=== PATIENT | female | born 1995 ===

== ENCOUNTER 2024-07-16 08:19 | Inpatient (IN) ==
[2024-07-16] MEDS ORDERED: OXYTOCIN 30 UNITS/NSS 30 UNITS/500 ML BAG IV PRN (08:33)
[2024-07-16] MEDS ORDERED: LIDOCAINE 1% LOCAL 20 ML VIAL INFIL PRN (08:33)
[2024-07-16 09:30] LABS: Hematocrit (blood only) 35.8 % (37.0-47.0); Hemoglobin 11.8 g/dl (12.0-16.0); Mean Platelet Volume 10.4 fL (9.4-12.4); Platelet Count 173 K/uL (130-400); RDW Coefficient of Variation 13.7 % (11.5-14.5); RDW Standard Deviation 42.1 fL (36.4-46.3); Red Blood Count 4.21 M/uL (4.20-5.40)
[2024-07-16] MEDS: LACTATED RINGER'S 1,000 ML IV PRN (09:45)
[2024-07-16] MEDS: OXYTOCIN 30 UNITS/NSS 30 UNITS/500 ML BAG IV PRN (09:45)
--- NOTE | 2024-07-16 16:29 | Anesthesiology Consultation ---
Date of Service July 16, 2024 Assessment & Plan (1) Encounter for pre-operative examination: Chart Review Chart Review: Acceptable Risk for Labor Epidural History Height/Weight Height: 5 ft 6 in Weight: 74.843 kg Allergies Allergy/AdvReac Type Severity Reaction Status Date / Time No Known Allergies Allergy Verified 07/15/24 20:08 Medications Home Medications Medication Instructions Recorded Confirmed Last Taken [id number] 1 tab PO DAILY 04/09/24 07/16/24 07/15/24 22:00 [ Plus] Active Medications Generic Name Dose Route Start Last Admin Trade Name Freq PRN Reason Stop Dose Admin Oxytocin 30 units in 500 mls @ 12 mls/hr 07/16/24 08:33 07/16/24 14:30 Pitocin 30 Units/Nss IV 07/18/24 08:32 0.72 units/hr .Q24H PRN 12 mls/hr Labor Induction/Augmentation Titration Protocol 0.72 UNITS/HR Lactated Ringer's 1,000 mls @ 125 mls/hr 07/16/24 08:33 07/16/24 09:45 Lr IV 07/18/24 08:32 125 mls/hr .Q8H PRN Administration L&D Protocol Protocol Past Medical History Medical History Caldera's palsy Varicella vaccination Past Family History Family History Family/Other Breast cancer Cousin with breast cancer Grandfather Diabetes Grandmother Hypertension Aunt Liver cancer Denies family history of Ovarian cancer Colorectal cancer Past Surgical History Surgical History No pertinent past surgical history Social History Smoking Status: Never smoker Do You Dip or Chew Tobacco: No Hx Alcohol Use: No Hx Substance Use: No Physical Exam Vital Signs Last Vital Signs Temp 36.7 C 07/16/24 15:30 Pulse 75 07/16/24 15:27 Resp 18 07/16/24 15:30 BP 117/71 07/16/24 15:27 Testing Laboratory Results 07/16/24 09:08
--- NOTE | 2024-07-16 16:36 | Labor Progress Brief Note ---
Date of Service July 16, 2024 Subjective Beginning to feel more discomfort. Did not want epidural yet. No ROM, VB. Continues to decline AROM. Good FM. Assessment & Plan (1) Encounter for induction of labor: Plan Discussed no change and need to be making additional interventions to get labor to begin. Recommended AROM at this time. Patient wants to get epidural placed and then will agree to AROM. Admission and Anticipated Discharge Date Admission Date: July 16, 2024 Physical Exam Genitourinary: Same cervix as upon admission this morning. No ROM FHT Cat 1 Parral Q3-4 Pit @ 12 Results & Data Vital Signs (Past 12 Hours) Vital Signs Temp Pulse Resp BP 07/16/24 15:30 98.1 F 18 07/16/24 15:30 18 07/16/24 15:30 98.1 F 18 07/16/24 15:27 75 07/16/24 15:27 117/71 07/16/24 14:35 20 07/16/24 14:35 98.4 F 20 07/16/24 14:31 73 07/16/24 14:31 110/58 L 07/16/24 13:37 73 07/16/24 13:37 110/56 L 07/16/24 12:29 73 07/16/24 12:29 97/55 L 07/16/24 11:34 88 07/16/24 11:34 103/60 07/16/24 11:30 18 07/16/24 11:30 98.4 F 18 07/16/24 10:30 71 07/16/24 10:30 89/52 L 07/16/24 09:47 89 07/16/24 09:47 102/59 L 07/16/24 08:34 98.4 F 102 H 20 102/56 L 07/16/24 08:29 102 H 102/56 L Coding Level of Care Code None Diagnoses Encounter for induction of labor Z34.90
[2024-07-16] MEDS ORDERED: SODIUM CHLORIDE 0.9% PF INJ 10 ML VIAL EPI PRN (17:26)
[2024-07-16] MEDS ORDERED: NALOXONE HCL 1 MG in SODIUM CHLORIDE 0.9% 1,000 ML IV PRN (17:26)
[2024-07-16] MEDS ORDERED: BUPIVACAINE 0.25% PF 30 ML VIAL EPI PRN (17:26)
[2024-07-16] MEDS ORDERED: LIDOCAINE 2% MPF LOCAL 5 ML VIAL EPI PRN (17:26)
[2024-07-16] MEDS ORDERED: ROPIVACAINE 0.5% PF 5 MG/ML 20 ML VIAL EPI PRN (17:26)
[2024-07-16] MEDS ORDERED: ePHEDrine sulfate 50 MG/ML AMP IV PRN (17:26)
[2024-07-16] MEDS ORDERED: fentaNYL citrate PF 100 MCG/2 ML VIAL EPI PRN (17:26)
[2024-07-16] MEDS: fentANYL 2 MCG/ML BUPIVacaine 0.125%-NSS 100ML BAG ONE (17:26)
[2024-07-16] MEDS ORDERED: fentANYL 2 MCG/ML BUPIVacaine 0.125%-NSS 100ML BAG EPI PRN (17:26)
[2024-07-16] MEDS ORDERED: NALOXONE HCL 0.4 MG/1 ML VIAL/CARP IV PRN (17:26)
[2024-07-16] MEDS: BUPIVACAINE 0.25% PF 30 ML VIAL ONE (17:30)
[2024-07-16] MEDS: LIDOCAINE 2%/EPINEPHRINE 1:200,000 20 ML PF ONE (17:30)
[2024-07-16] MEDS: fentaNYL citrate PF 100 MCG/2 ML VIAL ONE (18:16)
[2024-07-16] MEDS: ePHEDrine sulfate 50 MG/ML AMP ONE (18:16)
[2024-07-16] MEDS: SODIUM CHLORIDE 0.9% PF INJ 10 ML VIAL ONE (18:17)
[2024-07-16] MEDS: ONDANSETRON INJ 2 MG/ML 2 ML VIAL IV PRN (22:25)
--- NOTE | 2024-07-16 23:45 | Labor Progress Brief Note ---
Date of Service July 16, 2024 Subjective Delayed documentation due to other deliveries. Patient did request epidural, and once she was comfortable, AROM was performed for clear fluid. Since then a few hours have passed and patient was reassessed. She is not feeling pressure or discomfort. Assessment & Plan (1) Encounter for induction of labor: Plan: Lack of cervical change, high station and molding all concerning for possible CPD. Discussed problem-solving using the IUPC, to either inform the use of more pitocin vs clarify the reality of CPD if present. Initial MVU do look adequate. Admission and Anticipated Discharge Date Admission Date: July 16, 2024 Physical Exam Genitourinary: Cervical exam shows no significant cervical change from the time of AROM to now, still at 6cm. Station remains -2 with significant molding of the head. Cat 1 strip, sometimes early decels noted. Fluid remains clear. After counseling and consent, IUPC placed. Initial MVU 230. Results & Data Vital Signs (Past 12 Hours) Vital Signs Temp Pulse Resp BP Pulse Ox 07/16/24 23:35 95 07/16/24 23:35 72 07/16/24 23:34 94 07/16/24 23:34 74 07/16/24 23:34 93/54 L 07/16/24 23:30 16 07/16/24 23:30 16 07/16/24 23:30 95 07/16/24 23:30 67 07/16/24 23:27 94 07/16/24 23:27 66 07/16/24 23:25 95 07/16/24 23:25 68 07/16/24 23:20 96 07/16/24 23:20 68 07/16/24 23:19 65 07/16/24 23:19 98/50 L 07/16/24 23:15 93 07/16/24 23:15 74 07/16/24 23:12 94 07/16/24 23:12 88 07/16/24 23:10 94 07/16/24 23:10 78 07/16/24 23:07 92 07/16/24 23:07 76 07/16/24 23:05 97 07/16/24 23:05 86 07/16/24 23:03 82 07/16/24 23:03 108/68 07/16/24 23:00 98.8 F 07/16/24 23:00 96 10/01/24 23:00 75 07/16/24 22:55 95 07/16/24 22:55 64 07/16/24 22:50 97 07/16/24 22:50 71 07/16/24 22:48 69 07/16/24 22:48 105/60 07/16/24 22:45 96 07/16/24 22:45 67 07/16/24 22:40 96 07/16/24 22:40 66 07/16/24 22:40 94 07/16/24 22:40 65 07/16/24 22:35 97 07/16/24 22:35 72 07/16/24 22:35 105/65 07/16/24 22:30 16 07/16/24 22:30 16 07/16/24 22:30 97 07/16/24 22:30 78 07/16/24 22:25 97 07/16/24 22:25 84 07/16/24 22:20 97 07/16/24 22:20 99 H 07/16/24 22:20 81 07/16/24 22:20 115/65 07/16/24 22:15 97 07/16/24 22:15 71 07/16/24 22:10 97 07/16/24 22:10 74 07/16/24 22:05 97 07/16/24 22:05 67 07/16/24 22:04 77 07/16/24 22:04 109/68 07/16/24 22:00 16 07/16/24 22:00 16 07/16/24 22:00 97 07/16/24 22:00 66 07/16/24 21:55 97 07/16/24 21:55 70 07/16/24 21:50 97 07/16/24 21:50 78 07/16/24 21:49 77 07/16/24 21:49 116/61 07/16/24 21:45 97 07/16/24 21:45 75 07/16/24 21:40 97 07/16/24 21:40 82 07/16/24 21:35 97 07/16/24 21:35 88 07/16/24 21:33 72 07/16/24 21:33 91/55 L 07/16/24 21:30 16 07/16/24 21:30 97.9 F 16 07/16/24 21:30 98 07/16/24 21:30 62 07/16/24 21:25 95 07/16/24 21:25 61 07/16/24 21:20 97 07/16/24 21:20 61 07/16/24 21:19 60 07/16/24 21:19 89/54 L 07/16/24 21:15 96 07/16/24 21:15 61 07/16/24 21:10 96 07/16/24 21:10 60 07/16/24 21:05 96 07/16/24 21:05 60 07/16/24 21:03 60 07/16/24 21:03 96/52 L 07/16/24 21:00 16 07/16/24 21:00 16 07/16/24 21:00 96 07/16/24 21:00 59 L 07/16/24 20:55 97 07/16/24 20:55 58 L 07/16/24 20:50 96 07/16/24 20:50 59 L 07/16/24 20:48 57 L 07/16/24 20:48 90/55 L 07/16/24 20:45 98 07/16/24 20:45 66 07/16/24 20:40 97 07/16/24 20:40 62 07/16/24 20:35 96 07/16/24 20:35 60 07/16/24 20:35 58 L 07/16/24 20:35 98/55 L 07/16/24 20:30 16 07/16/24 20:30 16 07/16/24 20:30 16 07/16/24 20:30 16 07/16/24 20:30 97 07/16/24 20:30 60 07/16/24 20:25 97 07/16/24 20:25 70 07/16/24 20:20 98 07/16/24 20:20 68 07/16/24 20:20 65 07/16/24 20:20 91/52 L 07/16/24 20:15 98 07/16/24 20:15 76 07/16/24 20:10 97 07/16/24 20:10 93 H 07/16/24 20:07 94 07/16/24 20:07 77 07/16/24 20:05 96 07/16/24 20:05 66 07/16/24 20:03 65 07/16/24 20:03 100/64 07/16/24 20:00 16 07/16/24 20:00 16 07/16/24 20:00 95 07/16/24 20:00 69 07/16/24 19:55 96 07/16/24 19:55 62 07/16/24 19:50 96 07/16/24 19:50 67 07/16/24 19:49 61 07/16/24 19:49 98/64 L 07/16/24 19:45 96 07/16/24 19:45 60 07/16/24 19:40 96 07/16/24 19:40 59 L 07/16/24 19:35 96 07/16/24 19:35 60 07/16/24 19:34 67 07/16/24 19:34 106/66 07/16/24 19:30 100 07/16/24 19:30 61 07/16/24 19:29 16 07/16/24 19:29 98.2 F 16 07/16/24 19:25 99 07/16/24 19:25 65 07/16/24 19:20 96 07/16/24 19:20 59 L 07/16/24 19:20 92/51 L 07/16/24 19:15 96 07/16/24 19:15 57 L 07/16/24 19:10 97 07/16/24 19:10 67 07/16/24 19:05 96 07/16/24 19:05 59 L 07/16/24 19:05 88/50 L 07/16/24 19:00 18 07/16/24 19:00 18 07/16/24 19:00 97 07/16/24 19:00 60 07/16/24 18:55 97 07/16/24 18:55 64 07/16/24 18:50 97 07/16/24 18:50 63 07/16/24 18:49 63 07/16/24 18:49 94/51 L 07/16/24 18:45 97 07/16/24 18:45 63 07/16/24 18:40 96 07/16/24 18:40 61 07/16/24 18:35 97 07/16/24 18:35 66 07/16/24 18:33 62 07/16/24 18:33 95/51 L 07/16/24 18:30 18 07/16/24 18:30 18 07/16/24 18:30 96 07/16/24 18:30 62 07/16/24 18:25 97 07/16/24 18:25 61 07/16/24 18:20 96 07/16/24 18:20 64 07/16/24 18:20 60 07/16/24 18:20 100/55 L 07/16/24 18:15 97 07/16/24 18:15 64 07/16/24 18:10 99 07/16/24 18:10 65 07/16/24 18:05 98 07/16/24 18:05 82 07/16/24 18:05 69 07/16/24 18:05 111/60 07/16/24 18:00 18 07/16/24 18:00 98.2 F 18 07/16/24 18:00 97 07/16/24 18:00 81 07/16/24 17:55 97 07/16/24 17:55 66 07/16/24 17:50 97 07/16/24 17:50 72 07/16/24 17:49 82 07/16/24 17:49 102/64 07/16/24 17:45 97 07/16/24 17:45 70 07/16/24 17:40 97 07/16/24 17:40 70 07/16/24 17:35 98 07/16/24 17:35 87 07/16/24 17:33 83 07/16/24 17:33 106/64 07/16/24 17:30 97 07/16/24 17:30 92 H 07/16/24 17:26 85 07/16/24 17:26 102/63 07/16/24 17:25 98 07/16/24 17:25 77 07/16/24 17:24 78 07/16/24 17:24 108/68 07/16/24 17:22 88 07/16/24 17:22 110/69 07/16/24 17:20 100 07/16/24 17:20 81 07/16/24 17:20 70 07/16/24 17:20 116/74 07/16/24 17:15 100 07/16/24 17:15 68 07/16/24 17:10 100 07/16/24 17:10 69 07/16/24 17:00 18 07/16/24 17:00 18 07/16/24 16:18 18 07/16/24 16:18 18 07/16/24 15:30 98.1 F 18 07/16/24 15:30 18 07/16/24 15:30 98.1 F 18 07/16/24 15:27 75 07/16/24 15:27 117/71 07/16/24 14:35 20 07/16/24 14:35 98.4 F 20 07/16/24 14:31 73 07/16/24 14:31 110/58 L 07/16/24 13:37 73 07/16/24 13:37 110/56 L 07/16/24 12:29 73 07/16/24 12:29 97/55 L Coding Level of Care Code None Diagnoses Encounter for induction of labor Z34.90
[2024-07-17] MEDS ORDERED: MoRPHine SULFATE PF 1 MG/ML 10 ML AMP/VIAL ONE (01:51)
--- NOTE | 2024-07-17 02:07 | Labor Progress Brief Note ---
Date of Service July 17, 2024 Subjective Patient comfortable with epidural Assessment & Plan (1) Encounter for induction of labor: Plan: Patient and FOB counseled on current situation. We are now seeing some cervical change after multiple hours of adequate MVU. However, the station remains high and molding is significant. There have been concerns during this patient's care for possible cardiac anomaly and possible double-bubble sign of the stomach. These have not been consistently seen, so we discussed that predicting exactly what if any resuscitation or assistance this baby may need immediately upon delivery is difficult. I planned and communicated earlier so as to have shovel logger present at whether vaginal or due to the above. Throughout her labor course, signs are present for possible CPD. In addition there have been frequent Cat 2 tracings that predict possible distress by the time we have achieved complete dilation and a full second stage of labor. Neither of these things will improve the 's status in the event that resuscitation is actually required upon delivery. The safest, most controlled way forward for this delivery is likely a . This was recommended to patient and FOB who were then given some time alone to consider. They do agree to proceed. Line by line review of consent form was completed and all questions were answ ered to stated satisfaction. Pitocin was stopped, and a senior electronics technician on-call and the anesthesiology on-call were notified. Admission and Anticipated Discharge Date Admission Date: July 16, 2024 Physical Exam Genitourinary: I have been checking on her FHT Q10min for the last few hours, as she has had intervals of minimal variability, intervals of recurrent early decels, and intervals of late/variable decels, being Cat 2 more often than Cat 1. The RN contacted me to report she had been repositioning the patient but still seeing Cat 2, and I came to the room to assess the patient. Cvx 8/100/-2 and significant molding noted. Bloody show and labial edema both present. Simons remains clear yellow urine. Upon scalp stimulation, the FHT did improve, but within a few minutes another episode of Cat 2 tracing occurred. Ricardo Q2-3 Results & Data Vital Signs (Past 12 Hours) Vital Signs Temp Pulse Resp BP Pulse Ox 07/17/24 01:55 72 96 07/17/24 01:52 80 92 07/17/24 01:51 70 109/53 L 07/17/24 01:50 71 97 07/17/24 01:45 66 97 07/17/24 01:40 96 07/17/24 01:40 95 H 07/17/24 01:40 91 H 94 07/17/24 01:35 78 98 07/17/24 01:34 80 113/56 L 07/17/24 01:30 80 99 07/17/24 01:25 80 95 07/17/24 01:23 77 93 07/17/24 01:20 75 96 07/17/24 01:19 73 107/54 L 07/17/24 01:15 69 95 07/17/24 01:12 68 94 07/17/24 01:10 67 95 07/17/24 01:05 65 95 07/17/24 01:04 65 94/54 L 07/17/24 01:00 66 16 95 07/17/24 00:55 66 94 07/17/24 00:54 66 94 07/17/24 00:50 79 96 07/17/24 00:49 71 99/57 L 94 07/17/24 00:45 71 94 07/17/24 00:40 75 94 07/17/24 00:35 94 07/17/24 00:35 69 07/17/24 00:35 67 94 07/17/24 00:34 71 96/55 L 07/17/24 00:30 70 16 94 07/17/24 00:29 71 94 07/17/24 00:25 75 95 07/17/24 00:20 96 07/17/24 00:20 79 07/17/24 00:20 69 99/56 L 07/17/24 00:15 96 07/17/24 00:15 81 07/17/24 00:15 89 93 07/17/24 00:10 64 97 07/17/24 00:05 78 97 07/17/24 00:04 66 94 07/17/24 00:03 61 99/53 L 07/17/24 00:00 65 16 94 07/16/24 23:58 94 07/16/24 23:58 64 07/16/24 23:55 95 07/16/24 23:55 62 07/16/24 23:53 94 07/16/24 23:53 62 07/16/24 23:50 96 07/16/24 23:50 64 07/16/24 23:48 61 07/16/24 23:48 95/52 L 07/16/24 23:46 94 07/16/24 23:46 64 07/16/24 23:45 95 07/16/24 23:45 62 07/16/24 23:40 94 07/16/24 23:40 65 07/16/24 23:35 95 07/16/24 23:35 72 07/16/24 23:34 94 07/16/24 23:34 74 07/16/24 23:34 93/54 L 07/16/24 23:30 16 07/16/24 23:30 16 07/16/24 23:30 95 07/16/24 23:30 67 07/16/24 23:27 94 07/16/24 23:27 66 07/16/24 23:25 95 07/16/24 23:25 68 07/16/24 23:20 96 07/16/24 23:20 68 07/16/24 23:19 65 07/16/24 23:19 98/50 L 07/16/24 23:15 93 07/16/24 23:15 74 07/16/24 23:12 94 07/16/24 23:12 88 07/16/24 23:10 94 07/16/24 23:10 78 07/16/24 23:07 92 07/16/24 23:07 76 07/16/24 23:05 97 07/16/24 23:05 86 07/16/24 23:03 82 07/16/24 23:03 108/68 07/16/24 23:00 98.8 F 07/16/24 23:00 96 07/16/24 23:00 75 07/16/24 22:55 95 07/16/24 22:55 64 07/16/24 22:50 97 07/16/24 22:50 71 07/16/24 22:48 69 07/16/24 22:48 105/60 07/16/24 22:45 96 07/16/24 22:45 67 07/16/24 22:40 96 07/16/24 22:40 66 07/16/24 22:40 94 07/16/24 22:40 65 07/16/24 22:35 97 07/16/24 22:35 72 07/16/24 22:35 105/65 07/16/24 22:30 16 07/16/24 22:30 16 07/16/24 22:30 97 07/16/24 22:30 78 07/16/24 22:25 97 07/16/24 22:25 84 07/16/24 22:20 97 07/16/24 22:20 99 H 07/16/24 22:20 81 07/16/24 22:20 115/65 07/16/24 22:15 97 07/16/24 22:15 71 07/16/24 22:10 97 07/16/24 22:10 74 07/16/24 22:05 97 07/16/24 22:05 67 07/16/24 22:04 77 07/16/24 22:04 109/68 07/16/24 22:00 16 07/16/24 22:00 16 07/16/24 22:00 97 07/16/24 22:00 66 07/16/24 21:55 97 07/16/24 21:55 70 07/16/24 21:50 97 07/16/24 21:50 78 07/16/24 21:49 77 07/16/24 21:49 116/61 07/16/24 21:45 97 07/16/24 21:45 75 07/16/24 21:40 97 07/16/24 21:40 82 07/16/24 21:35 97 07/16/24 21:35 88 07/16/24 21:33 72 07/16/24 21:33 91/55 L 07/16/24 21:30 16 07/16/24 21:30 97.9 F 16 07/16/24 21:30 98 07/16/24 21:30 62 07/16/24 21:25 95 07/16/24 21:25 61 07/16/24 21:20 97 07/16/24 21:20 61 07/16/24 21:19 60 07/16/24 21:19 89/54 L 07/16/24 21:15 96 07/16/24 21:15 61 07/16/24 21:10 96 07/16/24 21:10 60 07/16/24 21:05 96 07/16/24 21:05 60 07/16/24 21:03 60 07/16/24 21:03 96/52 L 07/16/24 21:00 16 07/16/24 21:00 16 07/16/24 21:00 96 07/16/24 21:00 59 L 07/16/24 20:55 97 07/16/24 20:55 58 L 07/16/24 20:50 96 07/16/24 20:50 59 L 07/16/24 20:48 57 L 07/16/24 20:48 90/55 L 07/16/24 20:45 98 07/16/24 20:45 66 07/16/24 20:40 97 07/16/24 20:40 62 07/16/24 20:35 96 07/16/24 20:35 60 07/16/24 20:35 58 L 07/16/24 20:35 98/55 L 07/16/24 20:30 16 07/16/24 20:30 16 07/16/24 20:30 16 07/16/24 20:30 16 07/16/24 20:30 97 07/16/24 20:30 60 07/16/24 20:25 97 07/16/24 20:25 70 07/16/24 20:20 98 07/16/24 20:20 68 07/16/24 20:20 65 07/16/24 20:20 91/52 L 07/16/24 20:15 98 07/16/24 20:15 76 07/16/24 20:10 97 07/16/24 20:10 93 H 07/16/24 20:07 94 07/16/24 20:07 77 07/16/24 20:05 96 07/16/24 20:05 66 07/16/24 20:03 65 07/16/24 20:03 100/64 07/16/24 20:00 16 07/16/24 20:00 16 07/16/24 20:00 95 07/16/24 20:00 69 07/16/24 19:55 96 07/16/24 19:55 62 07/16/24 19:50 96 07/16/24 19:50 67 07/16/24 19:49 61 07/16/24 19:49 98/64 L 07/16/24 19:45 96 07/16/24 19:45 60 07/16/24 19:40 96 07/16/24 19:40 59 L 07/16/24 19:35 96 07/16/24 19:35 60 07/16/24 19:34 67 07/16/24 19:34 106/66 07/16/24 19:30 100 07/16/24 19:30 61 07/16/24 19:29 16 07/16/24 19:29 98.2 F 16 07/16/24 19:25 99 07/16/24 19:25 65 07/16/24 19:20 96 07/16/24 19:20 59 L 07/16/24 19:20 92/51 L 07/16/24 19:15 96 07/16/24 19:15 57 L 07/16/24 19:10 97 07/16/24 19:10 67 07/16/24 19:05 96 07/16/24 19:05 59 L 07/16/24 19:05 88/50 L 07/16/24 19:00 18 07/16/24 19:00 18 07/16/24 19:00 97 07/16/24 19:00 60 07/16/24 18:55 97 07/16/24 18:55 64 07/16/24 18:50 97 07/16/24 18:50 63 07/16/24 18:49 63 07/16/24 18:49 94/51 L 07/16/24 18:45 97 07/16/24 18:45 63 07/16/24 18:40 96 07/16/24 18:40 61 07/16/24 18:35 97 07/16/24 18:35 66 07/16/24 18:33 62 07/16/24 18:33 95/51 L 07/16/24 18:30 18 07/16/24 18:30 18 07/16/24 18:30 96 07/16/24 18:30 62 07/16/24 18:25 97 07/16/24 18:25 61 07/16/24 18:20 96 07/16/24 18:20 64 07/16/24 18:20 60 07/16/24 18:20 100/55 L 07/16/24 18:15 97 07/16/24 18:15 64 07/16/24 18:10 99 07/16/24 18:10 65 07/16/24 18:05 98 07/16/24 18:05 82 07/16/24 18:05 69 07/16/24 18:05 111/60 07/16/24 18:00 18 07/16/24 18:00 98.2 F 18 07/16/24 18:00 97 07/16/24 18:00 81 07/16/24 17:55 97 07/16/24 17:55 66 07/16/24 17:50 97 07/16/24 17:50 72 07/16/24 17:49 82 07/16/24 17:49 102/64 07/16/24 17:45 97 07/16/24 17:45 70 07/16/24 17:40 97 07/16/24 17:40 70 07/16/24 17:35 98 07/16/24 17:35 87 07/16/24 17:33 83 07/16/24 17:33 106/64 07/16/24 17:30 97 07/16/24 17:30 92 H 07/16/24 17:26 85 07/16/24 17:26 102/63 07/16/24 17:25 98 07/16/24 17:25 77 07/16/24 17:24 78 07/16/24 17:24 108/68 07/16/24 17:22 88 07/16/24 17:22 110/69 07/16/24 17:20 100 07/16/24 17:20 81 07/16/24 17:20 70 07/16/24 17:20 116/74 07/16/24 17:15 100 07/16/24 17:15 68 07/16/24 17:10 100 07/16/24 17:10 69 07/16/24 17:00 18 07/16/24 17:00 18 07/16/24 16:18 18 07/16/24 16:18 18 07/16/24 15:30 98.1 F 18 07/16/24 15:30 18 07/16/24 15:30 98.1 F 18 07/16/24 15:27 75 07/16/24 15:27 117/71 07/16/24 14:35 20 07/16/24 14:35 98.4 F 20 07/16/24 14:31 73 07/16/24 14:31 110/58 L Coding Level of Care Code None Diagnoses Encounter for induction of labor Z34.90
[2024-07-17] MEDS: ACETAMINOPHEN 500 MG TAB PO SCH (02:12)
[2024-07-17] MEDS ORDERED: NALBUPHINE HCL INJ 10 MG/ML AMP IV PRN (02:13)
[2024-07-17] MEDS ORDERED: NALOXONE HCL 0.4 MG/1 ML VIAL/CARP IV PRN (02:13)
[2024-07-17] MEDS ORDERED: NALOXONE HCL 1 MG in SODIUM CHLORIDE 0.9% 1,000 ML IV PRN (02:13)
[2024-07-17] MEDS ORDERED: MoRPHine SULFATE 2 MG/ML CARP IV PRN (02:13)
[2024-07-17] MEDS ORDERED: LACTATED RINGER'S 500 ML IV PRN (02:13)
[2024-07-17] MEDS ORDERED: NALOXONE HCL 0.08 MG in SYRINGE 1.8 ML IV PRN (02:13)
[2024-07-17] MEDS ORDERED: ePHEDrine sulfate 50 MG/ML AMP IV PRN (02:13)
[2024-07-17] MEDS ORDERED: PROMETHAZINE 6.25 MG/50.25 ML BAG IV PRN (02:13)
[2024-07-17] MEDS ORDERED: diphenhydrAMINE 50 MG/ML VIAL IV PRN ×2 (02:13→20:13)
[2024-07-17] MEDS ORDERED: NO NARCOTICS OR SEDATIVES SCH (02:15)
[2024-07-17] MEDS ORDERED: AZITHROMYCIN 500 MG in DEXTROSE 5% 250 ML IV SCH (02:15)
[2024-07-17] MEDS: CITRIC ACID/SODIUM CITRATE 15 ML UDC PO SCH (02:15)
[2024-07-17] MEDS ORDERED: DC INTRASPINAL MORPHINE SCH (02:15)
[2024-07-17] MEDS: ceFAZolin 2000MG 2,000 MG/15 ML SYR IV SCH (02:18)
[2024-07-17 02:41] LABS: Hematocrit (blood only) 37.2 % (37.0-47.0); Hemoglobin 12.3 g/dl (12.0-16.0); Mean Corpuscular Hemoglobin 28.2 pg (25.0-34.0); Mean Corpuscular Hgb Conc 33.1 g/dL (32.0-36.0); Mean Corpuscular Volume 85.3 fL (80.0-100.0); Mean Platelet Volume 10.7 fL (9.4-12.4); Platelet Count 170 K/uL (130-400); RDW Coefficient of Variation 13.6 % (11.5-14.5); RDW Standard Deviation 42.3 fL (36.4-46.3); Red Blood Count 4.36 M/uL (4.20-5.40); White Blood Count 8.57 K/ul (4.8-10.8)
[2024-07-17] MEDS ORDERED: METOCLOPRAMIDE HCL INJ 5 MG/ML 2 ML VIAL ONE (02:48)
[2024-07-17] MEDS ORDERED: ONDANSETRON INJ 2 MG/ML 2 ML VIAL ONE (02:48)
[2024-07-17] MEDS ORDERED: PHENYLEPHRINE 100MCG/ML 10ML SYR IV ONE (02:48)
[2024-07-17] MEDS ORDERED: ePHEDrine sulfate 50 MG/5 ML SYR ONE (02:48)
[2024-07-17] MEDS ORDERED: DEXAMETHASONE SOD INJ 4 MG/ML VIAL ONE (02:48)
[2024-07-17] MEDS ORDERED: OXYTOCIN 10 UNITS/ML VIAL ONE (02:48)
[2024-07-17] MEDS ORDERED: LIDOCAINE 2%/EPINEPHRINE 1:200,000 20 ML PF ONE (02:57)
[2024-07-17] MEDS ORDERED: LACTATED RINGER'S 1,000 ML IV SCH ×2 (03:00→03:29)
--- NOTE | 2024-07-17 03:10 | Operative Report ---
[facility] Post Operative Report Pre & Post Diagnosis Operation Date: 07/17/24 02:00 NRFHT remote from delivery Suspected CPD Possible VSD, possible pericardial effusion, concern for "double bubble" sign on US I identified the patient and participated in the time-out.: Yes Procedure Operation Date: 07/17/24 02:00 Actual Procedures 1' Low Transverse Section Surgeon Krista Cain MD Wet Inspector Optical Glass Colleen Rincon RN Estimated Blood Loss 281 Findings Consistent with Post-Op Diagnosis Specimens Placenta, cord blood. Anesthesia Type Spinal Complications none Disposition Accompanied Patient To Recovery: Yes Disposition: L&D Description of Procedure The patient was placed operating table in the supine position with a leftward tilt. She was prepped and draped in standard sterile fashion. The anesthetic was tested and found to be adequate. A time-out was held, identifying correct patient, procedure, positioning and preoperative antibiotics. There were no concerns. A Pfannenstiel skin incision was made with a knife and taken down to the underlying layer of fascia. The fascia was incised in the midline with the knife and taken out laterally with scissors. The superior edge of the fascial incision was grasped, elevated and dissected off the underlying rectus both superiorly and inferiorly. The muscles were bluntly in the midline. The peritoneum was entered bluntly. The incision was then stretched. The bladder retractor was placed. The vesicouterine peritoneum was identified, entered with scissors and taken out laterally with scissors. The bladder flap was created digitally. A hysterotomy incision was created transversely in the lower uterine segment, final entry being accomplished in a blunt manner with the transfer car operator drier's fingers. Clear amniotic fluid was encountered. The transfer car operator drier's hand was used to elevate the head to the hysterotomy. The head was delivered using mild fundal pressure, and the shoulders and body followed without difficulty. The cord was clamped and cut and the infant was then handed off to the awaiting waistline joiner. Cord blood was obtained. The placenta was Manually extracted. The uterus was exteriorized and cleared of all clot and debris with moistened laparotomy sponges. The hysterotomy incision was repaired in two layers, the first in a running locked layer, the second in an imbricating layer. The ovaries and tubes were seen to be normal bilaterally. The uterus was gently replaced in the abdomen, and the gutters were cleared of clot and debris. A final inspection of the hysterotomy revealed good hemostasis. The rectus muscles were allowed to reapproximate naturally. The fascia was then reapproximated with 1 Vicryl in a running nonlocked manner. The fascia was examined and found to be free of defect following closure. The subcutaneous tissue was copiously irrigated and reapproximated with 0-chromic, then the skin edges were closed with 4-0 monocryl in a subcuticular fashion. A dermabond dressing was applied. The davies was found to be draining clear yellow urine at completion of the procedure. I attest to the content of the Intraoperative Record and any orders documented therein. Any exceptions are noted below. I attest to the content of the Intraoperative Record and any orders documented therein. Any exceptions are noted below.
--- NOTE | 2024-07-17 03:10 | Anesthesia Procedure Note ---
Date of Service July 17, 2024 Anesthesia Post Epidural Note Vital Signs Vital Signs: Temp Pulse Resp BP Pulse Ox 37.1 C 74 16 101/52 L 94 07/16/24 23:00 07/17/24 02:18 07/17/24 01:30 07/17/24 02:05 07/17/24 02:18 Pain Intensity Lower Abdomen: Pain Intensity: 0 Notes Mental Status: alert / awake / arousable and participated in evaluation Nausea / Vomiting: adequately controlled Pain: adequately controlled Airway Patency, RR, SpO2: stable & adequate BP & HR: stable & adequate Hydration State: stable & adequate Neuraxial Anesthesia: was administered and sensory block is resolving Anesthetic Complications: no major complications apparent Epidural: Removed without complications and With tip intact
[2024-07-17] MEDS: KETOROLAC 30 MG/ML VIAL IV PRN (03:25)
[2024-07-17] MEDS ORDERED: HYDROCORTISONE ACETATE 25 MG SUPP PR PRN (03:29)
[2024-07-17] MEDS ORDERED: MAGNESIUM HYDROXIDE SUSP 30 ML UDC PO PRN (03:29)
[2024-07-17] MEDS ORDERED: CALCIUM CARBONATE 500 MG CHEWABLE TAB PO PRN (03:29)
[2024-07-17] MEDS ORDERED: SENNA 8.6 MG TAB PO PRN (03:29)
[2024-07-17] MEDS ORDERED: BENZOCAINE 20% SPRY 85 APPLN/85 GM CAN EXT PRN (03:29)
[2024-07-17] MEDS: OXYTOCIN 30 UNITS/LR 1,003 ML IV SCH (03:35)
--- NOTE | 2024-07-17 05:21 | Anesthesiology Progress Note ---
Date of Service July 17, 2024 Anesthesia Post Procedure Vital Signs Vital Signs: Temp Pulse Resp BP Pulse Ox 07/17/24 05:07 85 100/56 L 07/17/24 05:05 78 95 07/17/24 05:01 16 07/17/24 05:00 82 97 07/17/24 04:57 76 96/52 L 07/17/24 04:55 82 98 07/17/24 04:50 83 96 07/17/24 04:47 81 100/58 L 07/17/24 04:45 75 98 07/17/24 04:41 69 94 07/17/24 04:40 70 95 07/17/24 04:37 67 99/54 L 07/17/24 04:35 77 96 07/17/24 04:30 79 98 07/17/24 04:28 92 H 101/55 L 07/17/24 04:25 91 H 97 07/17/24 04:20 83 96 07/17/24 04:17 84 103/58 L 07/17/24 04:15 92 H 97 07/17/24 04:14 82 94 07/17/24 04:10 36.6 C 07/17/24 04:10 36.6 C 18 07/17/24 04:10 90 96 07/17/24 04:07 79 96/51 L 93 07/17/24 04:05 82 97 07/17/24 04:00 16 07/17/24 04:00 87 94 07/17/24 03:57 72 92/51 L 07/17/24 03:55 76 95 07/17/24 03:54 81 94 07/17/24 03:50 16 07/17/24 03:50 76 96 07/17/24 03:48 84 96/53 L 07/17/24 03:45 88 97 07/17/24 03:40 16 07/17/24 03:40 81 98 07/17/24 03:37 101 H 108/52 L 07/17/24 03:35 85 98 07/17/24 03:30 16 07/17/24 03:30 79 98 07/17/24 03:28 81 105/58 L 07/17/24 03:25 95 H 100 07/17/24 03:20 16 07/17/24 03:20 101 H 100 07/17/24 03:15 97 07/17/24 03:15 110 H 07/17/24 03:15 103 H 91/54 L 07/17/24 03:10 36.9 C 16 07/17/24 02:18 74 94 07/17/24 02:15 73 99 07/17/24 02:10 71 97 07/17/24 02:05 97 07/17/24 02:05 71 07/17/24 02:05 70 101/52 L 07/17/24 02:00 84 98 07/17/24 01:55 72 96 07/17/24 01:52 80 92 07/17/24 01:51 70 109/53 L 07/17/24 01:50 71 97 07/17/24 01:45 66 97 07/17/24 01:40 96 07/17/24 01:40 95 H 07/17/24 01:40 91 H 94 07/17/24 01:35 78 98 07/17/24 01:34 80 113/56 L 07/17/24 01:30 80 16 99 07/17/24 01:25 80 95 07/17/24 01:23 77 93 07/17/24 01:20 75 96 07/17/24 01:19 73 107/54 L 07/17/24 01:15 69 95 07/17/24 01:12 68 94 07/17/24 01:10 67 95 07/17/24 01:05 65 95 07/17/24 01:04 65 94/54 L 07/17/24 01:00 66 16 95 07/17/24 00:55 66 94 07/17/24 00:54 66 94 07/17/24 00:50 79 96 07/17/24 00:49 71 99/57 L 94 07/17/24 00:45 71 94 07/17/24 00:40 75 94 07/17/24 00:35 94 07/17/24 00:35 69 07/17/24 00:35 67 94 07/17/24 00:34 71 96/55 L 07/17/24 00:30 70 16 94 07/17/24 00:29 71 94 07/17/24 00:25 75 95 07/17/24 00:20 96 07/17/24 00:20 79 07/17/24 00:20 69 99/56 L 07/17/24 00:15 96 07/17/24 00:15 81 07/17/24 00:15 89 93 07/17/24 00:10 64 97 07/17/24 00:05 78 97 07/17/24 00:04 66 94 07/17/24 00:03 61 99/53 L 07/17/24 00:00 65 16 94 07/16/24 23:58 94 07/16/24 23:58 64 07/16/24 23:55 95 07/16/24 23:55 62 07/16/24 23:53 94 07/16/24 23:53 62 07/16/24 23:50 96 07/16/24 23:50 64 07/16/24 23:48 61 07/16/24 23:48 95/52 L 07/16/24 23:46 94 07/16/24 23:46 64 07/16/24 23:45 95 07/16/24 23:45 62 07/16/24 23:40 94 07/16/24 23:40 65 07/16/24 23:35 95 07/16/24 23:35 72 07/16/24 23:34 94 07/16/24 23:34 74 07/16/24 23:34 93/54 L 07/16/24 23:30 16 07/16/24 23:30 16 07/16/24 23:30 95 07/16/24 23:30 67 07/16/24 23:27 94 07/16/24 23:27 66 07/16/24 23:25 95 07/16/24 23:25 68 07/16/24 23:20 96 07/16/24 23:20 68 07/16/24 23:19 65 07/16/24 23:19 98/50 L 07/16/24 23:15 93 07/16/24 23:15 74 07/16/24 23:12 94 07/16/24 23:12 88 07/16/24 23:10 94 07/16/24 23:10 78 07/16/24 23:07 92 07/16/24 23:07 76 07/16/24 23:05 97 07/16/24 23:05 86 07/16/24 23:03 82 07/16/24 23:03 108/68 07/16/24 23:00 37.1 C 07/16/24 23:00 96 07/16/24 23:00 75 07/16/24 22:55 95 07/16/24 22:55 64 07/16/24 22:50 97 07/16/24 22:50 71 07/16/24 22:48 69 07/16/24 22:48 105/60 07/16/24 22:45 96 07/16/24 22:45 67 07/16/24 22:40 96 07/16/24 22:40 66 07/16/24 22:40 94 07/16/24 22:40 65 07/16/24 22:35 97 07/16/24 22:35 72 07/16/24 22:35 105/65 07/16/24 22:30 16 07/16/24 22:30 16 07/16/24 22:30 97 07/16/24 22:30 78 07/16/24 22:25 97 07/16/24 22:25 84 07/16/24 22:20 97 07/16/24 22:20 99 H 07/16/24 22:20 81 07/16/24 22:20 115/65 07/16/24 22:15 97 07/16/24 22:15 71 07/16/24 22:10 97 07/16/24 22:10 74 07/16/24 22:05 97 07/16/24 22:05 67 07/16/24 22:04 77 07/16/24 22:04 109/68 07/16/24 22:00 16 07/16/24 22:00 16 07/16/24 22:00 97 07/16/24 22:00 66 07/16/24 21:55 97 07/16/24 21:55 70 07/16/24 21:50 97 07/16/24 21:50 78 07/16/24 21:49 77 07/16/24 21:49 116/61 07/16/24 21:45 97 07/16/24 21:45 75 07/16/24 21:40 97 07/16/24 21:40 82 07/16/24 21:35 97 07/16/24 21:35 88 07/16/24 21:33 72 07/16/24 21:33 91/55 L 07/16/24 21:30 16 07/16/24 21:30 36.6 C 16 07/16/24 21:30 98 07/16/24 21:30 62 07/16/24 21:25 95 07/16/24 21:25 61 07/16/24 21:20 97 07/16/24 21:20 61 07/16/24 21:19 60 07/16/24 21:19 89/54 L 07/16/24 21:15 96 07/16/24 21:15 61 07/16/24 21:10 96 07/16/24 21:10 60 07/16/24 21:05 96 07/16/24 21:05 60 07/16/24 21:03 60 07/16/24 21:03 96/52 L 07/16/24 21:00 16 07/16/24 21:00 16 07/16/24 21:00 96 07/16/24 21:00 59 L 07/16/24 20:55 97 07/16/24 20:55 58 L 07/16/24 20:50 96 07/16/24 20:50 59 L 07/16/24 20:48 57 L 07/16/24 20:48 90/55 L 07/16/24 20:45 98 07/16/24 20:45 66 07/16/24 20:40 97 07/16/24 20:40 62 07/16/24 20:35 96 07/16/24 20:35 60 07/16/24 20:35 58 L 07/16/24 20:35 98/55 L 07/16/24 20:30 16 07/16/24 20:30 16 07/16/24 20:30 16 07/16/24 20:30 16 07/16/24 20:30 97 07/16/24 20:30 60 07/16/24 20:25 97 07/16/24 20:25 70 07/16/24 20:20 98 07/16/24 20:20 68 07/16/24 20:20 65 07/16/24 20:20 91/52 L 07/16/24 20:15 98 07/16/24 20:15 76 07/16/24 20:10 97 07/16/24 20:10 93 H 07/16/24 20:07 94 07/16/24 20:07 77 07/16/24 20:05 96 07/16/24 20:05 66 07/16/24 20:03 65 07/16/24 20:03 100/64 07/16/24 20:00 16 07/16/24 20:00 16 07/16/24 20:00 95 07/16/24 20:00 69 07/16/24 19:55 96 07/16/24 19:55 62 07/16/24 19:50 96 07/16/24 19:50 67 07/16/24 19:49 61 07/16/24 19:49 98/64 L 07/16/24 19:45 96 07/16/24 19:45 60 07/16/24 19:40 96 07/16/24 19:40 59 L 07/16/24 19:35 96 07/16/24 19:35 60 07/16/24 19:34 67 07/16/24 19:34 106/66 07/16/24 19:30 100 07/16/24 19:30 61 07/16/24 19:29 16 07/16/24 19:29 36.8 C 16 07/16/24 19:25 99 07/16/24 19:25 65 07/16/24 19:20 96 07/16/24 19:20 59 L 07/16/24 19:20 92/51 L 07/16/24 19:15 96 07/16/24 19:15 57 L 07/16/24 19:10 97 07/16/24 19:10 67 07/16/24 19:05 96 07/16/24 19:05 59 L 07/16/24 19:05 88/50 L 07/16/24 19:00 18 07/16/24 19:00 18 07/16/24 19:00 97 07/16/24 19:00 60 07/16/24 18:55 97 07/16/24 18:55 64 07/16/24 18:50 97 07/16/24 18:50 63 07/16/24 18:49 63 07/16/24 18:49 94/51 L 07/16/24 18:45 97 07/16/24 18:45 63 07/16/24 18:40 96 07/16/24 18:40 61 07/16/24 18:35 97 07/16/24 18:35 66 07/16/24 18:33 62 07/16/24 18:33 95/51 L 07/16/24 18:30 18 07/16/24 18:30 18 07/16/24 18:30 96 07/16/24 18:30 62 07/16/24 18:25 97 07/16/24 18:25 61 07/16/24 18:20 96 07/16/24 18:20 64 07/16/24 18:20 60 07/16/24 18:20 100/55 L 07/16/24 18:15 97 07/16/24 18:15 64 07/16/24 18:10 99 07/16/24 18:10 65 07/16/24 18:05 98 07/16/24 18:05 82 07/16/24 18:05 69 07/16/24 18:05 111/60 07/16/24 18:00 18 07/16/24 18:00 36.8 C 18 07/16/24 18:00 97 07/16/24 18:00 81 07/16/24 17:55 97 07/16/24 17:55 66 07/16/24 17:50 97 07/16/24 17:50 72 07/16/24 17:49 82 07/16/24 17:49 102/64 07/16/24 17:45 97 07/16/24 17:45 70 07/16/24 17:40 97 07/16/24 17:40 70 07/16/24 17:35 98 07/16/24 17:35 87 07/16/24 17:33 83 07/16/24 17:33 106/64 07/16/24 17:30 97 07/16/24 17:30 92 H 07/16/24 17:26 85 07/16/24 17:26 102/63 07/16/24 17:25 98 07/16/24 17:25 77 07/16/24 17:24 78 07/16/24 17:24 108/68 07/16/24 17:22 88 07/16/24 17:22 110/69 07/16/24 17:20 100 07/16/24 17:20 81 07/16/24 17:20 70 07/16/24 17:20 116/74 07/16/24 17:15 100 07/16/24 17:15 68 07/16/24 17:10 100 07/16/24 17:10 69 07/16/24 17:00 18 07/16/24 17:00 18 07/16/24 16:18 18 07/16/24 16:18 18 07/16/24 15:30 36.7 C 18 07/16/24 15:30 18 07/16/24 15:30 36.7 C 18 07/16/24 15:27 75 07/16/24 15:27 117/71 07/16/24 14:35 20 07/16/24 14:35 36.9 C 20 07/16/24 14:31 73 07/16/24 14:31 110/58 L 07/16/24 13:37 73 07/16/24 13:37 110/56 L 07/16/24 12:29 73 07/16/24 12:29 97/55 L 07/16/24 11:34 88 07/16/24 11:34 103/60 07/16/24 11:30 18 07/16/24 11:30 36.9 C 18 07/16/24 10:30 71 07/16/24 10:30 89/52 L 07/16/24 09:47 89 07/16/24 09:47 102/59 L 07/16/24 08:34 36.9 C 102 H 20 102/56 L 07/16/24 08:29 102 H 102/56 L Pain Intensity Lower Abdomen: Pain Intensity: 0 Transfer of Care Handoff Completed per policy Notes Mental Status: alert / awake / arousable Patient Amnestic to Procedure: Yes Nausea / Vomiting: adequately controlled Pain: adequately controlled Airway Patency, RR, SpO2: stable & adequate BP & HR: stable & adequate Hydration State: stable & adequate Neuraxial Anesthesia: was administered and sensory block is resolving Anesthetic Complications: no major complications apparent
[2024-07-17] MEDS: fentaNYL citrate PF 100 MCG/2 ML VIAL EPI STA (07:23)
[2024-07-17] MEDS: BUPIVACAINE 0.25% PF 30 ML VIAL EPI STA (07:23)
[2024-07-17] MEDS: LIDOCAINE 2%/EPINEPHRINE 1:200,000 20 ML PF EPI STA (07:24)
[2024-07-17] MEDS: LACTATED RINGER'S 1,000 ML IV SCH (07:24)
[2024-07-17] MEDS: SODIUM CHLORIDE 0.9% PF INJ 10 ML VIAL EPI STA (07:24)
[2024-07-17] MEDS: MoRPHine SULFATE PF 1 MG/ML 10 ML AMP/VIAL EPI ONE (07:25)
[2024-07-17] MEDS: SODIUM CHLORIDE 0.9% 1,000 ML IV SCH (07:25)
[2024-07-17] MEDS ORDERED: Nursing to Pharmacy Communication SCH (07:30)
[2024-07-17] MEDS ORDERED: DOCUSATE SODIUM 100 MG CAP PO SCH (08:00)
[2024-07-17] MEDS: PRENATAL VITAMIN 1 TAB PO SCH (08:30)
[2024-07-17] MEDS: IBUPROFEN 600 MG TAB PO SCH (08:30)
[2024-07-17] MEDS: FERROUS SULFATE 325 MG TAB PO SCH (08:30)
[2024-07-17] MEDS: ACETAMINOPHEN 325 MG TAB PO SCH (08:30)
[2024-07-17] MEDS: DOCUSATE SODIUM SYRUP 100 MG/10 ML UDC PO SCH (08:30)
[2024-07-17] MEDS: SIMETHICONE 80 MG CHEW PO SCH (08:30)
[2024-07-17] MEDS: ONDANSETRON INJ 2 MG/ML 2 ML VIAL IV PRN (10:58)
[2024-07-17] MEDS ORDERED: oxyCODONE HCL IR 5 MG TAB (IMMEDIATE RELEASE) PO PRN (20:13)
[2024-07-17] MEDS ORDERED: PROMETHAZINE 12.5 MG/50.5 ML BAG IV PRN (20:13)
[2024-07-17] MEDS ORDERED: diphenhydrAMINE Capsule 25 MG CAP PO PRN (20:13)
[2024-07-17] MEDS ORDERED: HYDROmorphone INJ 0.5 MG/0.5 ML SYR IV PRN (20:13)
[2024-07-17] MEDS ORDERED: ONDANSETRON INJ 2 MG/ML 2 ML VIAL IV PRN (20:53)
--- NOTE | 2024-07-18 08:20 | Obstetrical Progress Note ---
Date of Service July 18, 2024 Assessment & Plan (1) Encounter for care and examination after delivery: satisfactory course continue current care plan would like to go home later today if baby discharged Subjective Ambulation: ambulating normally Voiding: no voiding problems Passing Gas:: Yes Diet Tolerance:: regular diet Lochia:: Small Feeding Type:: breast feeding doing well this morning- testing on baby has all come back as normal pain well controlled on current regimen of Motrin and Tylenol Physical Exam Constitutional WD/WN, vitals as above Gastrointestinal (Abdomen) Inspection/Auscultation: + abdominal surgical incision (intact and dry- no erythema) Psychiatric A+Ox3, euthymic affect Genitourinary OB Exam Abdomen: + fundal height Fundus: + firm and + relation to umbilicus (1 below ) Results & Data Vital Signs (Past 12 Hours) Vital Signs Temp Pulse Resp BP Pulse Ox O2 Del Method 07/17/24 23:40 97.7 F 76 18 96/61 L 98 Room Air
[2024-07-18 12:36] LABS: Basophils # (auto) 0.03 K/uL (0.00-0.20); Basophils % (auto) 0.3 %; Eosinophils # (auto) 0.06 K/uL (0.00-0.50); Eosinophils % (auto) 0.6 %; Hematocrit (blood only) 28.8 % (37.0-47.0); Hemoglobin 9.7 g/dl (12.0-16.0); Immature Granulocytes # (auto) 0.06 K/uL (0.01-0.20); Immature Granulocytes % (auto) 0.6 %; Lymphocytes # (auto) 1.24 K/uL (1.20-3.40); Lymphocytes % (auto) 11.9 %; Mean Corpuscular Hemoglobin 28.6 pg (25.0-34.0); Mean Corpuscular Hgb Conc 33.7 g/dL (32.0-36.0); Mean Platelet Volume 10.6 fL (9.4-12.4); Monocytes # (auto) 0.66 K/uL (0.11-0.59); Monocytes % (auto) 6.3 %; Neutrophils # (auto) 8.39 K/uL (1.40-6.50); Neutrophils % (auto) 80.3 %; Platelet Count 153 K/uL (130-400); RDW Coefficient of Variation 13.8 % (11.5-14.5); RDW Standard Deviation 42.5 fL (36.4-46.3); Red Blood Count 3.39 M/uL (4.20-5.40); White Blood Count 10.44 K/ul (4.8-10.8)
[2024-07-18] MEDS: bisacodyL 5 MG TABEC PO SCH (20:35)
[2024-07-19] MEDS ORDERED: bisacodyL 10 MG SUPP PR PRN
[2024-07-19 02:34] VITALS: RESP 16
--- NOTE | 2024-07-19 07:29 | Obstetrical Progress Note ---
Date of Service July 19, 2024 Assessment & Plan (1) Encounter for care and examination after delivery: doing well but needs support. no issues with pain control. hgb noted. rh neg, baby rh neg, rubella immune Day #:: 2 Subjective Ambulation: ambulating normally Voiding: no voiding problems Passing Gas:: Yes Diet Tolerance:: regular diet Lochia:: Small Feeding Type:: breast feeding no pain issues, not using narcotic. having trouble with nipple pain and nursing, wants to see support. Constitutional: + as per Subjective / HPI Physical Exam Constitutional WD/WN, vitals as above Respiratory normal respiratory effort, lungs clear to auscultation Cardiovascular Rate/Rhythm: regular rate and regular rhythm Gastrointestinal (Abdomen) Inspection/Auscultation: abdomen normal to inspection Percussion/Palpation: abdomen soft Fundus firm 2cm down Musculoskeletal nt calves tr edema Neurologic grossly normal Psychiatric A+Ox3, euthymic affect Results & Data Vital Signs (Past 12 Hours) Vital Signs Temp Pulse Resp BP Pulse Ox O2 Del Method 07/19/24 02:02 97.9 F 85 16 108/74 98 Room Air
[2024-07-19] MEDS: IBUPROFEN 600 MG TAB PO PRN (08:32)
[2024-07-19 08:52] LABS: Hematocrit (blood only) 32.4 % (37.0-47.0); Hemoglobin 10.4 g/dl (12.0-16.0)
[2024-07-19 09:37] VITALS: BP 108/69; O2SAT 97
[2024-07-19] MEDS: DIPHTHER/TETAN/PERTUS Vaccine (Tdap, Adol/Adult) 0.5mL IM ONE (10:14)
[2024-07-19] MEDS ORDERED: Nursing to Pharmacy Communication SCH (10:30)
[2024-07-19] MEDS: ACETAMINOPHEN 325 MG TAB PO PRN (13:41)
[2024-07-19 15:20] VITALS: TEMP 97.5
[2024-07-19 18:05] VITALS: PULSE 76
--- NOTE | 2024-07-23 08:28 | Discharge Summary ---
Date of Service July 23, 2024 Discharge Data Consultations 07/16/24 08:34 Consult Anesthesiology Stat 07/17/24 01:53 Consult Anesthesiology Stat Procedures Performed Operation Date: 07/17/24 02:00 Actual Procedures p Section in LD of a [facility]@[id number] - Krista Cain MD Hospital Course (1) Encounter for care and examination after delivery: Admitted for IOL. NRFHT remote from delivery with suspected CPD and concern for possible cardiac/T-E anomalies on some US. Decision made to CSection which was uncomplicated. D/C home on POD#2 with usual care instructions. Coding Level of Care Code None Diagnoses Encounter for care and examination after delivery Z39.2
== END 2024-07-19 19:15 | disposition home or self-care (01) | DRG 788 ==
LOC: 4S1 08:19 → 4E2 07-17 05:39